=== PATIENT | male | born 1990 | race Caucasian/White ===

== ENCOUNTER 2020-02-28 08:52 | Emergency (ER) | payer SELFPAY ==
[~2020-02-28] VITALS: Ht 177.8 cm; Wt 80.3 kg
[2020-02-28 08:56] VITALS: BP 139/84
--- NOTE | 2020-02-28 09:05 | NUR ---
PT AMB TO BED 12. HANDED ON URINE CUP.
--- NOTE | 2020-02-28 10:00 | NUR ---
29 YO MALE COMES FROM HOME, PRESENTS TO ED C/O HEADACHE,N/V, EPIGASTRIC PAIN 8/10 X 1DAY AFTER DRINKING BEER AND WISKEY X1 WEEK. PT STES HE BEGAN DRINKING LAST TUESDAY " I MIGHT OF DONE ALSO DONE SOME COCAINE". HE STATES HE BEGAN FEELING SICK LAST NIGHT AND HAS HAD 3 EPISODES OF EMISIS, HE STATES IT IS YELLOW IN COLOR WITH BLOOD STREAKS IN IT. HE ALSO STATES HE HAS GENERALIZED WEEKNESS. ON ASSESSMENT PT PRESENTS WITH ELASTIC SKIN TURGOR, COLOR APPROPRIATE FOR ETHNICITY, MOIST MUCOUS MEMBRANES, LUNG ARE CLEAR ON AUSCULTATION, NORMAL HEART RATE/RHYTHM. NO PMH NKDA ADMITS TO USING COCAINE IN THE PAST
[2020-02-28] MEDS ORDERED: KETOROLAC 30 MG/ML VIAL IVP ONE (10:10)
[2020-02-28] MEDS ORDERED: ALUMINUM HYD/MAG/SIMETHICONE 30 ML, DICYCLOMINE HCL LIQUID 20 MG, LIDOCAINE VISCOUS 2% ... PO ONE ×3 (10:10)
[2020-02-28] MEDS ORDERED: ONDANSETRON 4 MG/2 ML VIAL IVP ONE (10:10)
[2020-02-28] MEDS ORDERED: FOLIC ACID 1 MG TAB PO ONE (10:10)
[2020-02-28] MEDS ORDERED: THIAMINE 200 MG/2 ML VIAL IM ONE (10:10)
[2020-02-28] MEDS ORDERED: NACL 0.9% 1,000 ML IV SCH (10:10)
[2020-02-28] MEDS ORDERED: LIDOCAINE VISCOUS 2% 20 ML UDC ONE (10:20)
[2020-02-28] MEDS ORDERED: MULTIVITAMIN-12 10 ML, THIAMINE 100 MG, MAGNESIUM SULFATE 50% 2,000 MG, FOLIC ACID 1 MG... IV SCH ×5 (10:20)
[2020-02-28] MEDS ORDERED: ALUMINUM HYD/MAG/SIMETHICONE 30 ML UDC ONE (10:21)
[2020-02-28] MEDS ORDERED: DICYCLOMINE HCL LIQUID 10 MG/5 ML UDC ONE (10:21)
--- NOTE | 2020-02-28 10:22 | NUR ---
20 G IV TO LEFT AC ESTABLISHED SUCCESSFULLY
--- NOTE | 2020-02-28 10:41 | NUR ---
LAB AT BEDSIDE
[2020-02-28 11:05] LABS: WHITE BLOOD COUNT (AUTO) 3.7 K/uL (4.8-10.8)
[2020-02-28 11:06] LABS: HEMATOCRIT 46.6 % (36-52); MEAN CORPUSCULAR HEMOGLOBIN 31 pg (27-31); MEAN CORPUSCULAR HGB CONC 34 g/dL (33-37); NEUTROPHILS % (AUTO) 57.3 % (42.2-75.2); PLATELET COUNT (AUTO) 209 K/uL (140-450); RED BLOOD CELL COUNT(AUTO) 5.18 MIL/uL (4.20-6.10); RED CELL DISTRIBUTION WIDTH 13.2 % (11.6-13.7)
[2020-02-28 11:07] LABS: BASOPHILS % (AUTO) 0.9 % (0.0-2.0); LYMPHOCYTES # (AUTO) 1.1 K/uL (2.0-11.5); LYMPHOCYTES % (AUTO) 30.7 % (20.5-51.1); MONOCYTES # (AUTO) 0.4 K/uL (0.8-1.0); MONOCYTES % (AUTO) 10.1 % (1.7-9.3); NEUTROPHILS # (AUTO) 2.1 K/uL (1.8-7.7)
[2020-02-28 11:19] LABS: POTASSIUM 4.2 mmol/L (3.5-5.1)
[2020-02-28 11:20] LABS: ANION GAP 15.6 (8-16); CARBON DIOXIDE 28.6 mmol/L (21-32); CREATININE 1.1 mg/dL (0.6-1.3)
[2020-02-28 11:21] LABS: ALBUMIN 4.5 g/dL (3.4-5.0); TOTAL BILIRUBIN 0.8 mg/dL (0.0-1.0)
[2020-02-28 13:10] VITALS: BP 139/88
--- NOTE | 2020-02-28 13:11 | NUR ---
Patient discharged with v/s stable. Written and verbal after care instructions given and explained. Patient alert, oriented and verbalized understanding of instructions. Ambulatory with steady gait. Pt states he arranged trasnportation and will be picked up by family. All questions addressed prior to discharge. ID band removed. Patient advised to follow up with PMD. Rx of ZOFRAN, PEPCID given. Patient educated on indication of medication including possible reaction and side effects. Opportunity to ask questions provided and answered.
--- NOTE | 2020-02-29 23:13 | NUR ---
LATE ENTRY--- NORMAL SALINE 0.9% NONADMINSTERED. MEDICATION D/C BY ERMD
== END 2020-02-28 13:11 | disposition home or self-care (01) ==
LOC: MED 08:52
DX: E86.0 Dehydration (principal); K29.20 Alcoholic gastritis without bleeding; F10.10 Alcohol abuse, uncomplicated; F17.210 Nicotine dependence, cigarettes, uncomplicated
CPT/HCPCS: 36415; 80053; 83690; 85025; 96374; 96375; 99284; A9153; J1885; J2405; J3411; J3475; J3490; J7030